=== PATIENT | female | born 1990 | race African-American/Black ===

== ENCOUNTER 2017-09-16 21:20 | Emergency (ER) | payer OTHER ==
[~2017-09-16] VITALS: Ht 152.4 cm; Wt 63.8 kg
[~2017-09-16 21:20] MED LIST: FLUTICASONE PRO16 GM
[2017-09-16 22:37] LABS: APPEARANCE SL.HAZY ((CLEAR)); BILIRUBIN NEGATIVE; BLOOD NEGATIVE; COLOR YELLOW ((YELLOW)); GLUCOSE (STRIP) NEGATIVE; KETONES NEGATIVE; LEUKOCYTES TRACE; NITRITE NEGATIVE; PROTEIN (STRIP) 30; SPECIFIC GRAVITY 1.029 (1.000-1.030)
[2017-09-16 22:41] LABS: BACTERIA NONE SEEN /HPF; EPITHELIAL CELLS 1+ /HPF; MUCUS TRACE /LPF; RED BLOOD CELLS 0-5 /HPF (0-5); WHITE BLOOD CELLS 0-5 /HPF (0-5)
[2017-09-16] MEDS ORDERED: FLEXERIL10 MG PO (23:35)
[2017-09-17 00:04] VITALS: BP 117/75
== END 2017-09-17 00:04 | disposition home or self-care (01) ==
LOC: EXP 21:20 → EME 21:20 → EXP 09-17 00:04
DX: M54.5 Low back pain (principal); G89.29 Other chronic pain; N63.20 Unspecified lump in the left breast, unspecified quadrant; F17.200 Nicotine dependence, unspecified, uncomplicated
CPT/HCPCS: 81003; 81025; 84702; 99281; 99284

== ENCOUNTER 2017-09-19 13:53 | Emergency (ER) | payer OTHER ==
[~2017-09-19] VITALS: Ht 152.4 cm; Wt 62.5 kg
[~2017-09-19 13:53] MED LIST changes: +FLEXERIL10 MG PO
[2017-09-19 14:48] LABS: APPEARANCE SL.HAZY ((CLEAR)); BILIRUBIN NEGATIVE; BLOOD NEGATIVE; COLOR YELLOW ((YELLOW)); GLUCOSE (STRIP) NEGATIVE; KETONES NEGATIVE; LEUKOCYTES TRACE; NITRITE NEGATIVE; PROTEIN (STRIP) 30; SPECIFIC GRAVITY 1.029 (1.000-1.030)
[2017-09-19 14:58] LABS: BACTERIA RARE /HPF; EPITHELIAL CELLS 1+ /HPF; HYALINE CASTS 0-5 /LPF; MUCUS 1+ /LPF; RED BLOOD CELLS 0-5 /HPF (0-5); UCUL ADDED? NO; WHITE BLOOD CELLS 0-5 /HPF (0-5)
[2017-09-19 15:15] LABS: SOURCE SWAB
[2017-09-19] MEDS ORDERED: FLEXERIL10 MG PO (15:42)
[2017-09-19] MEDS ORDERED: MEDROL DOSEPAK4 MG PO (15:44)
[2017-09-19 16:01] VITALS: BP 110/71
== END 2017-09-19 16:03 | disposition home or self-care (01) ==
LOC: EME 13:53
PROVIDERS: Physician Assistant
DX: G89.29 Other chronic pain (principal); M54.5 Low back pain; Z11.3 Encounter for screening for infections with a predominantly sexual mode of transmission; F17.200 Nicotine dependence, unspecified, uncomplicated
CPT/HCPCS: 72100; 81003; 84702; 87210; 87491; 87591; 99281; 99284

== ENCOUNTER 2017-11-18 09:41 | Emergency (ER) | payer OTHER ==
[~2017-11-18] VITALS: Ht 152.4 cm; Wt 68.0 kg
[~2017-11-18 09:41] MED LIST changes: +MEDROL DOSEPAK4 MG PO
[2017-11-18] MEDS ORDERED: FLEXERIL10 MG PO (11:25)
[2017-11-18 11:50] VITALS: BP 127/76
== END 2017-11-18 11:50 | disposition home or self-care (01) ==
LOC: EME 09:41
DX: M25.552 Pain in left hip (principal); V03.10XA Pedestrian on foot injured in collision with car, pick-up truck or van in traffic accident, initial encounter; Y93.01 Activity, walking, marching and hiking; Y92.410 Unspecified street and highway as the place of occurrence of the external cause; F17.200 Nicotine dependence, unspecified, uncomplicated
CPT/HCPCS: 73502; 81025; 84702; 99281; 99283